=== PATIENT | male | born 1995 | race Caucasian/White ===

== ENCOUNTER → 2021-01-03 | Outpatient (CLI) | payer OTHER, SELFPAY ==
[2021-01-03 10:58] VITALS: BMI 28.6
== END | disposition home or self-care (01) ==
PROVIDERS: Referring Provider Nurse Practitioner Family; Visit Provider Nurse Practitioner Family
DX: Z20.822 Contact with and (suspected) exposure to COVID-19 (principal)
CPT/HCPCS: 87635; U0002

== ENCOUNTER 2021-04-26 21:51 | Emergency (ER) | payer OTHER, SELFPAY ==
[2021-01-03 10:58] VITALS: BMI 28.6
[2021-04-26 21:52] VITALS: BP 147/103; PULSE 78; RESP 16; TEMP 36.4; O2SAT 100; BMI 29.1
--- NOTE | 2021-04-26 22:30 | RAD_ITS ---
INDICATION: fish bone injury-feels near base of tongue EXAMINATION/TECHNIQUE: X-RAY - XR Neck Soft Tissue COMPARISON: None. FINDINGS: SOFT TISSUES: Unremarkable. No radiopaque foreign body. EPIGLOTTIS: No pathologic thickening or enlargement. PROXIMAL AIRWAY: Grossly patent. RAD/Neck for Soft Tissue IMPRESSION: No obvious radiopaque foreign body. Electronically Signed: Sahil Dietrich MD at 22:54 EDT Tel , Service support ,
--- NOTE | 2021-04-26 22:42 | EDS_ITS ---
HPI HPI - GI History of Present Illness Chief Complaint: Foreign Body Informant: patient Narrative Narrative: Patient was eating fish a couple hours ago. He feels like a fishbone that was in the wall I poked him toward the back and base of the tongue. He did vomit afterwards. He does not know if the fishbone was in the vomit. He still feels as though it is there. No trouble breathing at any time. No abdominal pain. He points really to the base of the tongue as the source of his discomfort. It seems to be higher than the vallecula. Nothing really makes the symptoms better or worse. PFSH PFSH no medical history Home Medications wlvvefka-kefufsktv-risvmkwe 3.5 mg/mL-10,000 unit/mL-0.1% eye drops 1 drp OPHTHALMIC ml 01/03/21 [History Last Taken Unknown] Allergy/AdvReac Type Severity Reaction Status Date / Time No Known Allergies Allergy Verified 04/26/21 21:54 Family History Mother Kidney disease no surgical history Social History Smoking Status: Never smoker alcohol intake: current ROS ROS ED Constitutional Constitutional ED: Denies chills or fever(s) ENT ENT ED: Reports sore throat; Denies rhinorrhea Cardiovascular Cardiovascular: Denies chest pain or palpitations Respiratory/Chest Respiratory/Chest: Denies cough, dyspnea or sputum Gastrointestinal Gastrointestinal: Reports vomiting; Denies abdominal pain, constipation, diarrhea, melena or nausea Musculoskeletal Musculoskeletal: Reports neck pain Integumentary Denies abscess or rash Neurologic Neurologic: Denies headache(s) Hematologic/Lymphatic Hematologic/Lymphatic: Denies easy bleeding or easy bruising Allergic/Immunologic Allergic/Immunologic ED: Reports other Details: See history of present illness. ; Denies mouth swelling or tongue swelling EXAM Physical Exam Const Vital Signs: 04/26/21 21:52 Temperature 97.6 F L Temperature Source Temporal Pulse Rate 78 Respiratory Rate 16 Blood Pressure 147/103 H Blood Pressure Mean 117 Pulse Ox 100 Oxygen Delivery Method Room Air Positive well nourished and well developed General Appearance ED: well developed and NAD HEENT HEENT Narrative: Patient's voice is normal. Handling secretions is normal. Tongue motion is normal. I cannot see anything anywhere in his mouth. I used a gloved finger and I do not feel anything. However this may be farther back than I can see. No stridor when listening to him breathe over his neck. normocephalic and atraumatic Neck Neck Narrative: No stridor. Resp normal respiratory effort and clear to auscultation bilaterally Cardio regular rate and regular rhythm GI non-tender and non-distended Palpation: soft Back/Spine no CVA tenderness Neuro Sensorium / Orientation: alert Psych mental status grossly normal Skin Rashes: no rashes MDM MDM MDM Narrative Medical decision making narrative: I have attempted direct visualization. We used a warmed mirror to try to visualize. I cannot see any foreign body. Patient was actually already feeling better. He had had a lot of pain on the right side but that is completely gone now. He states he has a small sensation on the left and he is now pointing more toward the vallecula. But it is not pain it is more of a discomfort or sensation. He can swallow easily. He can drink. I discussed the case with ENT physician, Dr. Burgos. Plan will be close follow- up. Most of the time the facial bones will dislodge themselves or dissolve. Many times they are already gone and caused a puncture but have gone. They usually do not develop an abscess although we discussed this with the patient and told him specific reasons to return. Radiography Diagnostic Testing: Radiology Impression Soft Tissue Neck X-Ray 04/26/21 22:30 IMPRESSION: No obvious radiopaque foreign body. Electronically Signed: Sahil Dietrich MD at 22:54 EDT Tel , Service support , Discharge Plan Triage Chief Complaint: Foreign Body ED Provider: Herminio Campbell Dx/Rx/DC Orders Clinical Impression: Foreign body in pharynx Instructions: ED Pharyngeal Foreign Body, Removed Prescriptions: No Action neomycin-polymyxin B-dexameth 3.5mg/mL-10,000 unit/mL-0.1 % drops,suspension 1 drp OPHTHALMIC RF: 0 Primary Care Provider: Care Physician,No Primary Referrals: Alfonzo Burgos MD [STAFF PHYSICIAN] - 3-5 Days if not improving Care Physician,No Primary [Primary Care Provider] - Activity Restrictions/Additional Instructions: Return with worsening pain, trouble swallowing, fevers, chills, swelling or other concerns. Disposition Disposition: Home, Self Care
== END 2021-04-27 00:24 | disposition home or self-care (01) ==
PROVIDERS: Emergency Provider Emergency Medicine
DX: T17.298A Other foreign object in pharynx causing other injury, initial encounter (principal); X58.XXXA Exposure to other specified factors, initial encounter; Y93.89 Activity, other specified; Y92.9 Unspecified place or not applicable; Y99.8 Other external cause status
CPT/HCPCS: 70360; 99282

== ENCOUNTER → 2024-08-31 | Outpatient (CLI) | payer OTHER, SELFPAY ==
[2024-08-31 15:16] LABS: Absolute Lymphocyte Count 2.19 X10^3/uL (0.83-4.51); Absolute Neutrophil Count 3.9 X10^3/uL (2.0-7.7); Basophil# 0.03 X10^3/uL; Basophil% 0.4 % (0-1); Eosinophil# 0.04 X10^3/uL; Eosinophils% 0.6 % (0-5); Hematocrit 47.1 % (40-54); Lymphocyte # 2.19 X10^3/ul (0.83-4.51); Lymphocyte % 31.2 % (19-41); Mean Corpuscular Hgb 30.5 pg (27.0-32.0); Mean Corpuscular Volume 89.7 fL (80-94); Mean Platelet Vol. 10.4 fl (6.2-12.0); Monocyte% 11.4 % (0-10); NRBC Flagged by Analyzer 0 % (0-5); Neutrophil # 3.94 X10^3/uL (2.7-7.7); Neutrophil % 56.3 % (47-70); Platelet Count 307 K/mm3 (150-450); RBC Distribution Width CV 12.6 % (11.6-14.6); RBC Distribution Width SD 41.4 fl (35.1-43.9); Red Blood Count 5.25 M/mm3 (4.6-6.2)
[2024-08-31 15:43] LABS: ALB/GLOB Ratio 1.4 RATIO (0.9-2.4); AST(SGOT) 13 U/L (15-37); Alanine Aminotransfer ALT/SGPT 22 U/L (16-61); Albumin, Serum 4.5 g/dL (3.2-5.0); Alkaline Phosphatase 67 U/L (45-117); Anion Gap 7 (5-15); BUN 11 mg/dL (7-18); BUN/Creat Ratio 12.8 RATIO (10-20); Calcium,Total 9.4 mg/dL (8.5-10.1); Chloride 105 mmol/L (98-107); Cholesterol 194 mg/dL (200); Creatinine, Serum 0.86 mg/dL (0.70-1.30); EST Glomerular Filtration Rate 113 mL/min (>60); Est Glom Filt Rate - Afr Amer 136 mL/min (>60); Globulin 3.3 g/dL (2.2-4.2); Glucose 89 mg/dL (74-106); High Density Lipoprotein 43 mg/dL; Potassium 4.6 mmol/L (3.5-5.1); Protein, Total 7.8 g/dL (6.4-8.2); Sodium Level 138 mmol/L (136-145); Triglycerides 100 mg/dL; Very Low Density Lipoprotein 20 mg/dL (5-40)
== END | disposition home or self-care (01) ==
LOC: BIMLAB 11:57
PROVIDERS: PCP Physician Assistant; Referring Provider Physician Assistant; Visit Provider Physician Assistant
DX: Z00.00 Encounter for general adult medical examination without abnormal findings (principal)
CPT/HCPCS: 36415; 80053; 80061; 84443; 85025

== ENCOUNTER → 2024-09-11 | Outpatient (CLI) | payer OTHER, SELFPAY ==
--- NOTE | 2024-09-11 12:42 | US_ITS ---
HISTORY: familial polycystic kidney disease. TECHNIQUE: Gorman scale and color doppler images were obtained of the kidneys. 63 images. COMPARISON: None. FINDINGS: RIGHT KIDNEY: 11.5 cm in length. Cortical thickness 1.9 cm. Echogenicity unremarkable. No hydronephrosis. No gross renal mass demonstrated. LEFT KIDNEY: 12.1 cm in length. Cortical thickness 1.9 cm. Echogenicity unremarkable. No hydronephrosis. No gross renal mass demonstrated. URINARY BLADDER: Unremarkable abdomen 99 cc with a 5 mm wall thickness.. Bilateral ureteral jets visualized. US/Kidney and Bladder IMPRESSION: Unremarkable examination of the kidneys. Electronically Signed: Alma Delia Velazco MD at 14:52 EST ,
== END | disposition home or self-care (01) ==
LOC: US 12:42
PROVIDERS: PCP Physician Assistant; Referring Provider Physician Assistant; Visit Provider Physician Assistant
DX: Z00.00 Encounter for general adult medical examination without abnormal findings (principal); Z84.1 Family history of disorders of kidney and ureter
CPT/HCPCS: 76770

== ENCOUNTER → 2025-02-01 | Outpatient (CLI) | payer OTHER, SELFPAY ==
[2025-02-01 15:57] LABS: Cholesterol 214 mg/dL (<=200); High Density Lipoprotein 38 mg/dL; Low Density Lipoprotein Calc. 142 mg/dL; Triglycerides 174 mg/dL; Very Low Density Lipoprotein 35 mg/dL (5-40); cholesterol:hdl ratio screen 5.69
== END | disposition home or self-care (01) ==
LOC: BIMLAB 13:56
PROVIDERS: PCP Internal Medicine; Referring Provider Internal Medicine; Visit Provider Internal Medicine
DX: E78.5 Hyperlipidemia, unspecified (principal)
CPT/HCPCS: 36415; 80061